=== PATIENT | female | born 1985 | race Caucasian/White ===

== ENCOUNTER 2019-03-19 17:29 | Emergency (ER) | payer BC ==
[2019-03-19] MEDS ORDERED: Acetaminophen/HYDROcodone 325-5 MG Tab PO ONE (17:30)
--- NOTE | 2019-03-19 18:46 | EDM.PDOC ---
ED HPI GENERAL MEDICAL PROBLEM - General Chief Complaint: Back Pain or Injury Stated Complaint: FALL, BACK PAIN Time Seen by Provider: 03/19/19 17:42 Source of Information: Reports: Patient History Limitations: Reports: No Limitations - History of Present Illness INITIAL COMMENTS - FREE TEXT/NARRATIVE: 33 y.o.w.lissa came to the ed by PC after she fell at home after picking up a toy from the floor, onto her back. Pt C/O mid lower back pain when ambulating. Pt took Tylenol WAX POURER. No stool or urine incontinence. No N/V/D or any other acute med issues except mid lower -sacral- back pain. BP 105/83 RR 19 Pulse 111 temp 36.8 Pulse ox 100% on RA. Onset Date: 03/19/19 Onset Time: 15:00 Duration: Hour(s): Location: Reports: Pelvis Quality: Reports: Dull Severity: Moderate Improves with: Reports: Rest Worsens with: Reports: Movement Context: Reports: Trauma (fall) Associated Symptoms: Reports: No Other Symptoms Treatments WAX POURER: Reports: Acetaminophen - Related Data Allergies Allergy/AdvReac Type Severity Reaction Status Date / Time codeine Allergy Chest Verified 12/01/18 08:16 Tightness hydromorphone HCl Allergy Chest Verified 12/01/18 08:16 [From Dilaudid] Tightness latex Allergy Rash Verified 12/01/18 08:16 nifedipine [From Procardia] Allergy Chest Verified 12/01/18 08:16 Presssure bupropion [From Wellbutrin] AdvReac Vomiting Verified 02/04/19 08:12 ketorolac [From Toradol] AdvReac Stomach Verified 12/01/18 08:30 Upset Home Meds: Home Meds Calcium Carbonate [Calcium] 500 mg PO DAILY 08/23/13 [History] Vitamin B Complex 1 each PO DAILY 08/23/13 [History] Zolpidem Tartrate 5 mg PO ASDIRECTED 10/22/18 [History] Cyclobenzaprine [Flexeril] 10 mg PO TID PRN #30 tab 12/01/18 [Rx] Hydrocodone/Acetaminophen [Hydrocodon-Acetaminophen 5-325] 1 each PO TID PRN # 10 tablet 12/01/18 [Rx] oxyCODONE 5 mg PO Q4H PRN #42 tablet 02/05/19 [Rx] Past Medical History Gastrointestinal History: Reports: Other (See Below) Other Gastrointestinal History: R sided abd pain for past 24 hours P[employer] History: Reports: Musculoskeletal History: Reports: Back Pain, Chronic Other Musculoskeletal History: back fusion Psychiatric History: Reports: Anxiety, Depression - Past Surgical History GI Surgical History: Reports: Bariatric Procedure Neurological Surgical History: Reports: Spinal Fusion Other Neurological Surgeries/Procedures: [id number] Social & Family History - Family History Family Medical History: Noncontributory - Caffeine Use Caffeine Use: Reports: Coffee ED ROS GENERAL - Review of Systems Review Of Systems: See Below Constitutional: Reports: No Symptoms HEENT: Reports: No Symptoms Respiratory: Reports: No Symptoms Cardiovascular: Reports: No Symptoms Endocrine: Reports: No Symptoms GI/Abdominal: Reports: No Symptoms : Reports: No Symptoms Musculoskeletal: Reports: Back Pain Skin: Reports: No Symptoms Neurological: Reports: No Symptoms Psychiatric: Reports: No Symptoms Hematologic/Lymphatic: Reports: No Symptoms Immunologic: Reports: No Symptoms ED EXAM,LOWER BACK PAIN/INJURY - Physical Exam Exam: See Below Exam Limited By: No Limitations General Appearance: Alert, WD/WN, Mild Distress, Moderate Distress Eye Exam: Bilateral Eye: Normal Inspection Ears: Normal External Exam, Normal Canal Nose: Normal Inspection, Normal Mucosa Throat/Mouth: Normal Inspection, Normal Lips, Normal Teeth, Normal Voice, No Airway Compromise Head: Atraumatic, Normocephalic Neck: Normal Inspection, Supple, Non-Tender, Full Range of Motion Respiratory/Chest: No Respiratory Distress, Lungs Clear, Normal Breath Sounds, No Accessory Muscle Use, Chest Non-Tender Cardiovascular: Normal Peripheral Pulses, Regular Rate, Rhythm, No Edema, No Gallop GI/Abdominal: Normal Bowel Sounds, Soft, Non-Tender, No Organomegaly, No Abnormal Bruit, No Mass, Pelvis Stable (Female) Exam: Deferred Rectal (Female) Exam: Deferred Back Exam: Decreased Range of Motion, Vertebral Tenderness Extremities: Normal Inspection, Normal Range of Motion, Non-Tender, Normal Capillary Refill Neurological: Alert, Normal Mood/Affect, Normal Dorsiflexion, CN II-XII Intact, No Motor/Sensory Deficits, Oriented x 3 Psychiatric: Normal Affect, Normal Mood Skin Exam: Warm, Dry, Intact, Normal Color, No Rash Lymphatic: No Adenopathy Course - Vital Signs Text/Narrative:: 33 y.o.w.f came to the ed by SAM after she fell at home after picking up a toy from the floor, onto her back. Pt C/O mid lower back pain when ambulating. Pt took Tylenol WAX POURER. No stool or urine incontinence. No N/V/D or any other acute med issues except mid lower -sacral- back pain. BP 105/83 RR 19 Pulse 111 temp 36.8 Pulse ox 100% on RA. PE: WNWD W F with mid lower back pain Imaging: X Ray sacro iliac joint: NAD as per RAD Impression: Muscular skeletal low back pain Tx: Ice. Pt is allergic to Toradol. Pt was given a prescription for [place] Reexam: Improved Plan: D/C with instructions Last Recorded V/S: Last Vital Signs Temp 36.2 C 03/19/19 17:29 Pulse 87 03/19/19 18:25 Resp 18 03/19/19 18:25 BP 93/55 L 03/19/19 18:25 Pulse Ox 99 03/19/19 18:25 - Orders/Labs/Meds Orders: Active Orders 24 hr Category Date Time Status Sacroiliac Joint 2V [CR] Stat Exams 03/19/19 17:43 Ordered Ice Therapy [OM.PC] Routine Oth 03/19/19 17:43 Ordered Departure - Departure Time of Disposition: 18:46 Disposition: Home, Self-Care 01 Condition: Good Clinical Impression: Fall Low back pain Qualifiers: Chronicity: acute Back pain laterality: midline Sciatica presence: without sciatica Qualified Code(s): M54.5 - Low back pain - Discharge Information Instructions: Acetaminophen; Hydrocodone tablets or capsules, Acute Back Pain, Adult Referrals: PCP,Not In Area [Primary Care Provider] - Forms: ED Department Discharge Additional Instructions: Please apply ice to the affected area, please take Vicodin for severe pain, please f/u, come back if your symptoms get worse acutely - My Orders Last 24 Hours: My Active Orders 03/19/19 17:43 Sacroiliac Joint 2V [CR] Stat Ice Therapy [OM.PC] Routine - Assessment/Plan Last 24 Hours: My Active Orders 03/19/19 17:43 Sacroiliac Joint 2V [CR] Stat Ice Therapy [OM.PC] Routine
== END 2019-03-19 19:00 | disposition home or self-care (01) ==
LOC: FB.ED 17:29
DX: M54.5 Low back pain (principal); F41.9 Anxiety disorder, unspecified; F32.9 Major depressive disorder, single episode, unspecified; Z88.5 Allergy status to narcotic agent; Z88.8 Allergy status to other drugs, medicaments and biological substances; Z91.040 Latex allergy status; Z88.6 Allergy status to analgesic agent; Z79.899 Other long term (current) drug therapy; W01.0XXA Fall on same level from slipping, tripping and stumbling without subsequent striking against object, initial encounter; Y92.009 Unspecified place in unspecified non-institutional (private) residence as the place of occurrence of the external cause
CPT/HCPCS: 72200; 99283-25; A9270-GY